=== PATIENT | female | born 1945 | race Caucasian/White ===

== ENCOUNTER 2016-10-16 09:34 | Inpatient (IN) | payer OTHER ==
[2016-10-15 13:09] VITALS: BMI 19.0
--- NOTE | 2016-10-15 13:56 | PAT Medication Instructions ---
Service Date Oct 15, 2016. Current Home Medication List Amlodipine (Norvasc), 5 MG PO QAM Clopidogrel Bisulfate (Plavix), 1 TAB PO DAILY Estrogens, Conjugated (Premarin), 0.9 MG PO QAM Fluticasone Prop/Salmeterol (Advair Diskus 250/50 60 Dose), 1 PUFF INH BID Ipratropium-Albuterol (Combivent Respimat), 1 PUFFS INH QID Levothyroxine Sodium (Synthroid), 75 MCG PO QAM Metoprolol Tartrate (Lopressor) (Lopressor), 50 MG PO BID Pantoprazole (Protonix), 40 MG PO QAM Medication Instructions For Your Scheduled Surgery Clopidogrel Bisulfate (Plavix), 1 TAB PO DAILY (per surgeon instructions) - Hold the following medications the morning of surgery: Estrogens, Conjugated (Premarin), 0.9 MG PO QAM - Take the following medications the morning of surgery with a sip of water: Metoprolol Tartrate (Lopressor) (Lopressor), 50 MG PO BID Pantoprazole (Protonix), 40 MG PO QAM Levothyroxine Sodium (Synthroid), 75 MCG PO QAM Fluticasone Prop/Salmeterol (Advair Diskus 250/50 60 Dose), 1 PUFF INH BID Ipratropium-Albuterol (Combivent Respimat), 1 PUFFS INH QID - Take the following medications as scheduled the night before surgery: Metoprolol Tartrate (Lopressor) (Lopressor), 50 MG PO BID Fluticasone Prop/Salmeterol (Advair Diskus 250/50 60 Dose), 1 PUFF INH BID Ipratropium-Albuterol (Combivent Respimat), 1 PUFFS INH QID If you have any questions please call us at [phone] or [phone] ( [place]ha) or [phone]
[2016-10-15 14:32] LABS: BASO % 0.7 %; BASO ABS # 0.07 K/uL (0-0.2); COMPLETE YES; HEMATOCRIT 34.3 % (37-47); IG% 0.3 %; LYMPH % 16.3 %; LYMPH ABS # 1.67 K/uL (1.2-3.4); MEAN CELL VOLUME 88.9 fL (80-100); MEAN CORPUSCULAR HEMOGLOBIN 28.2 pg (25-34); MEAN CORPUSCULAR HGB CONC 31.8 g/dl (32-36); MEAN PLATELET VOLUME 10.7 fL (7.4-10.4); MONO % 6.2 %; NEUT % 74.5 %; PLATELET COUNT 384 K/uL (130-400); RED BLOOD COUNT 3.86 M/uL (4.2-5.4); WHITE BLOOD COUNT 10.27 K/uL (4.8-10.8)
[2016-10-15 14:42] LABS: URINE APPEARANCE CLEAR (CLEAR); URINE BILIRUBIN NEG (NEG); URINE COLOR YELLOW; URINE NITRITE NEG (NEG); URINE SPECIFIC GRAVITY 1.012 (1.000-1.030); UROBILINOGEN NEG (NEG)
[2016-10-15 14:46] LABS: INR 0.9 (0.9-1.1); MANUAL MICROSCOPIC REQUIRED? NO; PARTIAL THROMBOPLASTIN RATIO 1.1; REVIEW REQ? NO
--- NOTE | 2016-10-15 14:51 | DIAGNOSTIC IMAGING REPORT ---
CHEST PREADMISSION(PA/LAT) CLINICAL HISTORY: Preoperative chest COMPARISON STUDY: No previous studies for comparison. FINDINGS: The cardiac and mediastinal contours are normal. There is no evidence of focal pulmonary consolidation. There is no evidence of failure. No pleural effusions are visualized.[ IMPRESSION: No active disease in the chest. Electronically signed by: Nolan Gee M.D. 10/15/2016 2:50 PM Dictated Date/Time: 10/15/2016 2:49 PM
[2016-10-15 15:07] LABS: BUN/CREATININE RATIO 10.2 (10-20); CALCIUM 8.8 mg/dl (8.5-10.1); CREATININE 1.6 mg/dl (0.60-1.20)
--- NOTE | 2016-10-15 21:40 | HISTORY & PHYSICAL EXAMINATION ---
DATE OF ADMISSION: 10/16/2016 SUBJECTIVE CHIEF COMPLAINT: This is a patient who sustained a left trimalleolar fracture on 09/07/2016. The surgeon who performed the surgery in [place] is no longer in the area. She was seen by Dr. Mahoney in clinic because the patient started having increased problems. X-ray showed a loss of fixation of the fracture. She is currently being set up for surgical treatment. PAST MEDICAL HISTORY: Hypertension, COPD, hypothyroidism and acid reflux. SOCIAL HISTORY: The patient denies alcohol and tobacco use. FAMILY HISTORY: Noncontributory. PAST SURGICAL HISTORY: Cholecystectomy stent; however, the patient does not state where the stent was placed, that was in August 2013 and a left ankle surgery. ALLERGIES: No known drug allergies. CURRENT MEDICATIONS: Synthroid, Protonix, Premarin, Norvasc, metoprolol, Advair Diskus, aspirin and Plavix. OBJECTIVE PHYSICAL EXAMINATION: GENERAL: The patient is alert and oriented x3, she is in no acute distress. She is a well-dressed, well-nourished 71-year-old female. Her affect is appropriate. CARDIOVASCULAR: Heart has a regular rhythm and rate without murmurs. LUNGS: Clear to auscultation bilateral, however, decreased breath sounds. LYMPHATIC: No evidence of any swollen lymph nodes. EXTREMITIES: Dorsalis pedis, posterior tib pulse +2/4. Cap refill is less than 2 seconds. MUSCULOSKELETAL: The patient is nonweightbearing on the left side using a wheelchair. Upon inspection of the left ankle, there is well-healed surgical incision. There is swelling noted. There is no ecchymosis noted. No range of motion or strength testing was performed. NEUROLOGIC: Sensation normal and intact distally. X-RAY EXAM: Multiple views of the left ankle demonstrate loss of fixation of a trimalleolar ankle fracture. There is a posterior dislocation of the talus, with shortening noted. ASSESSMENT AND DIAGNOSES: 1. Trimalleolar fracture, left ankle. 2. Posterior dislocation of left ankle joint. 3. Loosening of bone fixation. PLAN: Above assessment was discussed with the patient. At this time it is recommended that patient undergo a left ankle revision ORIF of the tibial fracture with possible autograft, open reduction of posterior talar dislocation, removal of hardware, and possible revision ORIF of the fibula. All potential risks, benefits, complications, alternatives and rehab have been discussed with the patient. At this time she wishes to proceed with the surgery as indicated. She will be scheduled for the surgery on 10/16/2016.
[~2016-10-16] VITALS: Ht 157.5 cm; Wt 47.0 kg
[2016-10-16] VITALS (7 sets, daily range): BP systolic 108–160; BP diastolic 56–81; PULSE 63–79; TEMP 36.3–37.5; O2SAT 97–100; Ht 157.5 cm; Wt 47.0 kg
[~2016-10-16 09:34] MED LIST: ADVIN25/60 INH; AMLO-110 PO; BUPIVACAINE 0.5 % 5 MG/1 ML PF 10ML VIAL ONE; CEFAZOLIN 1000MG/55 ML D5W IV SCH; CLOP1TAB5 PO; ESTR0.3T PO; FENTANYL CITRATE INJ 50 MCG/1 ML 2 ML VIAL ONE; IPRA1AER2 INH; LACTATED RINGER'S 1000ML 1,000 ML IV SCH; LEVO75TA PO; METO50TA16 PO; MIDAZOLAM HCL 1 MG/ML 2ML VIAL ONE; PANT40TA PO
[2016-10-16] MEDS ORDERED: HYDROmorphone INJ 1 MG/ML SYR IV PRN (10:00)
[2016-10-16] MEDS ORDERED: ATROPINE SULFATE 0.1 MG/ML 5ML SYR IV PRN (10:00)
[2016-10-16] MEDS ORDERED: MEPERIDINE HCL 25 MG/ML CARP IV PRN (10:00)
[2016-10-16] MEDS ORDERED: LABETALOL HCL IV 5 MG/ML 20ML IV PRN (10:00)
[2016-10-16] MEDS ORDERED: ONDANSETRON INJ 2 MG/ML 2 ML VIAL IV PRN ×2 (10:00→16:00)
[2016-10-16] MEDS ORDERED: FENTANYL CITRATE INJ 50 MCG/1 ML 2 ML VIAL IV PRN (10:00)
[2016-10-16] MEDS ORDERED: EpHEDrine SULFATE INJ 50 MG/ML AMP IV PRN (10:00)
[2016-10-16] MEDS ORDERED: MIDAZOLAM HCL 1 MG/ML 2ML VIAL ONE (11:39)
[2016-10-16] MEDS ORDERED: CEFAZOLIN SOD 1000MG/55 ML D5W IV ONE (11:39)
--- NOTE | 2016-10-16 11:57 | History & Physical Bridge Note ---
H&P Re-Evaluation Bridge Note: I have examined the patient, reviewed the History & Physical and in the interval since the performance of the History & Physical I have noted the following changes of clinical significance: No changes noted
[2016-10-16] MEDS ORDERED: ONDANSETRON INJ 2 MG/ML 2 ML VIAL ONE (13:18)
[2016-10-16] MEDS ORDERED: PROPOFOL IV EMULSION 10 MG/ML 20 ML VIAL IV ONE (13:18)
[2016-10-16] MEDS ORDERED: ROCURONIUM BROMIDE 10 MG/ML 5 ML VIAL ONE (13:18)
[2016-10-16] MEDS ORDERED: EpHEDrine SULFATE 50MG/5ML SYR ONE (13:18)
[2016-10-16] MEDS ORDERED: LIDOCAINE HCL 2% 2 ML VIAL (20MG/ML) ONE (13:18)
[2016-10-16] MEDS ORDERED: NEOSTIGMINE METHYLSULFATE 5 MG/5 ML SYR ONE (13:18)
[2016-10-16] MEDS ORDERED: GLYCOPYRROLATE INJ 0.2 MG/ML VIAL ONE (13:18)
[2016-10-16] MEDS ORDERED: FENTANYL CITRATE INJ 50 MCG/1 ML 2 ML VIAL ONE ×2 (13:43→14:17)
[2016-10-16] MEDS ORDERED: METOPROLOL TARTRATE 1 MG/ML VIAL ONE (14:13)
[2016-10-16] MEDS ORDERED: HydrALAZINE HCL 20 MG/ML VIAL ONE (14:43)
[2016-10-16] MEDS ORDERED: ESMOLOL HCL 10 MG/ML 10 ML VIAL ONE (14:54)
[2016-10-16] MEDS ORDERED: PHENYLEPHRINE 100MCG/ML 5ML SYR ONE (15:12)
--- NOTE | 2016-10-16 15:26 | DIAGNOSTIC IMAGING REPORT ---
LEFT ANKLE 2 VIEWS CLINICAL HISTORY: LEFT ORIF ANKLE COMPARISON STUDY: None. FINDINGS: Total fluoroscopy time was 2 minutes and 41 seconds. 2 fluoroscopic spot images of the left ankle submitted. There is a cortical plate and screws at the distal tibia. The hardware appears intact. The alignment appears anatomic. IMPRESSION: Fluoroscopy provided for internal fixation of the left ankle. Electronically signed by: Jason Weaver M.D. 10/16/2016 3:24 PM Dictated Date/Time: 10/16/2016 3:21 PM
--- NOTE | 2016-10-16 15:27 | [facility] Post Operative Brief Note ---
Immediate Operative Summary Operative Date Oct 16, 2016. Pre-Operative Diagnosis 1. Trimalleolar fracture, left ankle. 2. Posterior dislocation of left ankle joint. 3. Loosening of bone fixation. 4. Retained Hardware Post-Operative Diagnosis 1. Trimalleolar fracture, left ankle. 2. Posterior dislocation of left ankle joint. 3. Loosening of bone fixation. 4. Retained Hardware Procedure(s) Performed Left Ankle Open Reduction Internal Fixation Distal Tibial Fracture; Open Reduction Talus Dislocation; Removal Hardware Tibia; Removal Hardware Fibula Surgeon Dr. Naveed Mahoney Fitting Room Checker Surgeon(s) None Estimated Blood Loss 40cc Findings See Dict Specimens Specimen A. Explanted left ankle hardware Drains None Anesthesia GETT w/ popliteal Complication(s) None Disposition Recovery Room / PACU
[2016-10-16] MEDS ORDERED: MAGNESIUM HYDROXIDE SUSP 30 ML UDC PO PRN (16:00)
--- NOTE | 2016-10-16 16:28 | OPERATIVE REPORT ---
DATE OF OPERATION: 10/16/2016 PREOPERATIVE DIAGNOSES: 1. Left ankle trimalleolar fracture-dislocation with prior attempted fixation. 2. Posterior dislocation of the ankle joint. 3. Loss of fixation. 4. Retained hardware in the tibia and the fibula. POSTOPERATIVE DIAGNOSES: Same. PROCEDURES: 1. Left ankle open reduction and internal fixation distal tibial fracture via posterior approach. 2. Open reduction talus dislocation. 3. Removal of hardware of the tibia. 4. Removal of hardware of the fibula including plate and screws. SURGEON: Dr. Mahoney. RADIO COMMUNICATIONS SUPERINTENDENT: Rudolph Herr PA-C who was present for patient positioning, sterile prep and drape, management of retractors and instruments. He was present through the critical portions of the case including wound closure, application of sterile dressing and transport of the patient to recovery. ANESTHESIA: General endotracheal tube with popliteal block. SPECIMENS: None. DRAINS: None. COMPLICATIONS: None. BLOOD LOSS: 40 mL. PERTINENT HISTORY: This is a 71-year-old female who had a previous trimalleolar fracture-dislocation of her ankle and was taken care of by Dr. Leonardo at [facility]. The patient had a followup visit on October 09, Dr. Chery was the attending who reviewed her films and noted she had loss of fixation and dislocation of her talus with displacement of her tibia fracture. She was then referred to my clinic for definitive care and management. All potential risks, benefits, complications, alternatives, rehab, potential for incomplete relief of symptoms, need for further surgery, DVT, PE, , persistent pain, swelling, scarring, weakness, neurovascular injury, wound complications, wound dehiscence, hardware breakage, bone fracture, nonunion or malunion were discussed with patient and decided to proceed with the procedure as indicated. DESCRIPTION OF PROCEDURE: After popliteal block was administered in the preop holding area, the patient was taken to the operative suite and placed supine on the operating room table. I reviewed the consent and identification of proper operative site, the patient was anesthetized, endotracheal tube was placed and a tourniquet was applied high on the left thigh over cast padding. The patient was then rolled prone over bolsters. All bony prominences were properly padded and protected. Next, the left lower extremity was then sterilely prepped and draped in usual fashion, elevated and exsanguinated with an Esmarch bandage. Tourniquet inflated to 300 mmHg. Next, a 15-blade scalpel was used to make small percutaneous incisions over the screw insertion sites over the lateral aspect of her fibula. The respective screws were removed. The holes were curetted and irrigated with sterile normal saline. Next, a slightly larger 1 cm incision was made distal to the plate which had been wrapped around the distal aspect of the fibula and then this plate was then removed percutaneously. These incisions were all irrigated with sterile normal saline, then closed using 4-0 nylon. Next, incision was made in the anterior distal aspect of the tibia. Careful dissection was performed with a hemostat down to the level of the anterior tibia and the screw which had lost fixation was then removed with a small screwdriver, irrigated with sterile normal saline, curetted with a small curette and then closed using 4-0 nylon. Next, a 15-blade scalpel was then used to make an incision on the lateral aspect of the Achilles tendon. The skin was then incised with 15-blade scalpel. Fascia was incised and the appropriate retractors were placed in the incision. Careful dissection was performed with tenotomy scissors noting the sural nerve and the peroneal vessels which were then retracted and protected. Next, the flexor hallucis longus fibers were identified, freed, retracted, and protected. Next, the periosteum overlying the posterior tibia was visualized and incised and retracted and protected. The displaced fracture was then noted. Careful dissection was performed with a rongeur and a [place] elevator and carefully developed a plane of the displaced fracture fragment. Next, a transfixion pin was placed percutaneously through the calcaneal tuberosity and traction was applied. The fragment was then freed, irrigated with sterile normal saline and a small pituitary rongeur was then used to resect any debris within the interspace of the fracture fragment and also into the tibiotalar joint. The talus was visualized. Next, the traction was applied. The talus was then reduced over the distal tibia, posterior fragment was then compressed with a picadur through a small stab incision through the anterior tibia. Direct compression was applied to the fragment and then pinned in place provisionally with a 0.045 inch K wires. Next, the Synthes posterior distal locking tibial plate was then applied to the posterior distal tibia, provisionally fixed with a non-locking screw. Multiple non-locking screw was then used to compress the plate and the fracture fragment thus reducing it followed by placement of locking screws to stabilize the fracture and compression screws were then exchanged for locking screws thus forming a stable construct. Near anatomic reduction was achieved and the wound was then copiously irrigated with sterile normal saline. AP and lateral final x-rays were obtained followed by closure of the deep soft tissue with 2-0 Vicryl. The fascia was closed using 2-0 Vicryl. The dermis was then closed using buried interrupted 3-0 Vicryl. Skin was closed with 4-0 nylon. A sterile compressive dressing and bulky Phillip Quiroga plaster splint was applied in neutral dorsiflexion. The tourniquet was released. The patient was awakened and taken to recovery in stable condition. I attest to the content of the Intraoperative Record and any orders documented therein. Any exceptio ns are noted below.
--- NOTE | 2016-10-16 16:47 | DIAGNOSTIC IMAGING REPORT ---
LEFT ANKLE 2 VIEWS CLINICAL HISTORY: Postop examination. FRACTURE. COMPARISON: Intraoperative study performed the same day DISCUSSION: There is a posterior metallic plate and multiple screws at the level of the distal tibia. The fine bony details obscured by an overlying plaster cast. Alignment appears near anatomic. IMPRESSION: Postsurgical changes involving the distal tibia. Electronically signed by: Nolan Gee M.D. 10/16/2016 4:45 PM Dictated Date/Time: 10/16/2016 4:44 PM
--- NOTE | 2016-10-16 17:37 | Anesthesiology Progress Note ---
Anesthesia Post Op Note Date & Time Oct 16, 2016 at 17:36 Vital Signs Pain Intensity: 4.0 Vital Signs Past 12 Hours Date Time Temp Pulse Resp B/P Pulse Ox O2 Delivery O2 Flow Rate FiO2 10/16/16 17:15 37.2 75 18 112/58 97 Room Air 10/16/16 16:56 97 Room Air 10/16/16 16:45 37.5 78 18 108/62 97 Room Air 10/16/16 16:34 69 21 97 10/16/16 16:34 69 21 10/16/16 16:33 109/44 10/16/16 16:29 70 22 97 10/16/16 16:29 70 22 10/16/16 16:28 105/47 10/16/16 16:25 71 20 10/16/16 16:25 70 20 97 10/16/16 16:23 101/41 10/16/16 16:20 71 23 97 10/16/16 16:20 71 23 10/16/16 16:20 37.1 74 22 108/49 98 Room Air 10/16/16 16:18 108/49 10/16/16 16:15 71 19 10/16/16 16:15 71 19 97 10/16/16 16:13 112/46 10/16/16 16:10 75 19 10/16/16 16:10 75 19 99 10/16/16 16:08 112/48 10/16/16 16:05 82 19 99 10/16/16 16:03 104/46 10/16/16 16:00 73 20 99 10/16/16 15:57 71 19 100 10/16/16 15:57 71 19 10/16/16 15:53 106/46 10/16/16 15:52 73 14 10/16/16 15:52 73 14 100 10/16/16 15:48 111/45 10/16/16 15:47 75 19 100 10/16/16 15:47 75 19 10/16/16 15:43 120/49 10/16/16 15:42 78 14 10/16/16 15:42 78 14 100 10/16/16 15:42 36.8 84 12 143/60 100 Mask 10 10/16/16 10:01 36.5 63 18 160/81 100 Room Air Notes Mental Status: alert / awake / arousable, participated in evaluation Pt Amnestic to Procedure: Yes Nausea / Vomiting: adequately controlled Pain: adequately controlled Airway Patency, RR, SpO2: stable & adequate BP & HR: stable & adequate Hydration State: stable & adequate Anesthetic Complications: no major complications apparent
--- NOTE | 2016-10-16 17:45 | Medical Consult ---
Consultation Date of Consultation: Oct 16, 2016. Attending Physician: Naveed Mahoney D.O. Reason for Consultation: Post Op Medical Management History of Present Illness 71 year old female who is s/p left ankle ORIF today by Dr. Mahoney. Patient had a fall in August and suffered a left trimalleolar ankle fracture. Patient underwent surgical repair. She continued to have pain however her original surgeon had left the area. She then was evaluated by Dr. Mahoney and presented for the planned procedure today. Post operatively the patient is doing well. She reports her pain is well controlled. She rates it #2/10. She continues to have numbness to the LLE and is unable to move her toes. She denies chest pain and shortness of breath. No abdominal pain, nausea, or vomiting. She denies lightheadedness and dizziness. Past Medical/Surgical History Medical Problems: (1) Carotid artery stent Status: Chronic (2) COPD (chronic obstructive pulmonary disease) Status: Chronic (3) CVA (cerebral vascular accident) Status: Chronic (4) HTN (hypertension) Status: Chronic (5) Hypothyroidism Status: Chronic (6) Trimalleolar fracture of left ankle Status: Chronic Surgical Problems: (1) History of hysterectomy Status: Chronic (2) Hx of appendectomy Status: Chronic (3) Hx of cholecystectomy Status: Chronic Family History non contributory due to patient's age Social History Smoking Status: Former Smoker Alcohol Use: none Allergies Coded Allergies: No Known Allergies (Unverified , 10/16/16) Home Medications Reported Plavix (Clopidogrel Bisulfate) 75 Mg Tab 1 Tab PO DAILY Advair Diskus 250/50 60 Dose (Fluticasone Prop/Salmeterol) 1 Ea Aerp 1 Puff INH BID Combivent Respimat (Ipratropium-Albuterol) 1 Aer Aer 1 Puffs INH QID 200/100MCG ON PT MED LIST Lopressor (Metoprolol Tartrate) 50 Mg Tab 50 Mg PO BID Premarin (Estrogens Conjugated) 0.3 Mg Tab 0.9 Mg PO QAM Synthroid (Levothyroxine Sodium) 75 Mcg Tab 75 Mcg PO QAM Protonix (Pantoprazole Sodium) 40 Mg Tab 40 Mg PO QAM Norvasc (Amlodipine Besylate) 5 Mg Tab 5 Mg PO QAM Current Inpatient Medications Current Inpatient Medications Medications (Trade) Dose Ordered Sig/Keisha Route Start Time Stop Time Status Last Admin Dose Admin Lactated Ringer's 1,000 ml @ 15 mls/hr Q24H IV 10/16/16 06:00 10/16/16 18:00 Cefazolin Sodium (Ancef 1000mg/55 ml D5W) 55 ml @ 100 mls/hr PREOP IV 10/16/16 06:00 10/16/16 18:00 10/16/16 12:28 100 MLS/HR Amlodipine Besylate (Norvasc Tab) 5 mg QAM PO 10/17/16 09:00 11/16/16 08:59 UNV Clopidogrel Bisulfate (plAVix TAB) 75 mg DAILY PO 10/17/16 09:00 11/16/16 08:59 UNV Estrogens Conjugated (Premarin Tab) 0.9 mg QAM PO 10/17/16 09:00 11/16/16 08:59 UNV Salmeterol Xinafoate/ Fluticasone (Advair Diskus 250/50 Inh) 1 puff BID INH 10/16/16 21:00 11/15/16 20:59 UNV Albuterol/ Ipratropium (Combivent Respimat Inh) 1 puffs QID INH 10/16/16 17:00 11/15/16 16:59 UNV Levothyroxine Sodium (Synthroid Tab) 75 mcg QAM PO 10/17/16 09:00 11/16/16 08:59 UNV Metoprolol Tartrate (Lopressor Tab) 50 mg BID PO 10/16/16 21:00 11/15/16 20:59 UNV Pantoprazole Sodium 40 mg 40 mg QAM PO 10/17/16 09:00 11/16/16 08:59 UNV Potassium Chloride/Sodium Chloride (KCl Inj/Nss 1000ml) 1,005 ml @ 100 mls/hr Q10H3M IV 10/16/16 15:55 11/15/16 15:54 UNV Oxycodone HCl (Roxicodone Immediate Rel Tab) 1-2 TABS FOR PAIN 1 TABLET ... Q4H PRN PO 10/16/16 16:00 10/30/16 15:59 UNV Acetaminophen (Tylenol Tab) 650 mg Q6H PRN PO 10/16/16 16:00 11/15/16 15:59 UNV Magnesium Hydroxide (Milk Of Magnesia Susp) 30 ml Q6H PRN PO 10/16/16 16:00 11/15/16 15:59 UNV Docusate Sodium (coLACE CAP) 100 mg BID PO 10/16/16 21:00 11/15/16 20:59 UNV Multivitamins (Multivitamin Tab) 1 tab QAM PO 10/17/16 09:00 11/16/16 08:59 UNV Ondansetron HCl 4 mg 4 mg Q6H PRN IV 10/16/16 16:00 11/15/16 15:59 UNV Cefazolin Sodium/ Dextrose (Ancef Iv/D5 50ml) 55 ml @ 100 mls/hr Q8H IV 10/16/16 16:00 10/17/16 00:32 UNV Review of Systems 10 point review of systems was completed with the pertinent positives and negatives noted per the HPI Physical Exam Date Time Temp Pulse Resp B/P Pulse Ox O2 Delivery O2 Flow Rate FiO2 10/16/16 16:56 97 Room Air 10/16/16 16:34 69 21 97 10/16/16 16:34 69 21 10/16/16 16:33 109/44 10/16/16 16:29 70 22 97 10/16/16 16:29 70 22 10/16/16 16:28 105/47 10/16/16 16:25 71 20 10/16/16 16:25 70 20 97 10/16/16 16:23 101/41 10/16/16 16:20 71 23 97 10/16/16 16:20 71 23 10/16/16 16:20 37.1 74 22 108/49 98 Room Air 10/16/16 16:18 108/49 10/16/16 16:15 71 19 10/16/16 16:15 71 19 97 10/16/16 16:13 112/46 10/16/16 16:10 75 19 10/16/16 16:10 75 19 99 10/16/16 16:08 112/48 10/16/16 16:05 82 19 99 10/16/16 16:03 104/46 10/16/16 16:00 73 20 99 10/16/16 15:57 71 19 100 10/16/16 15:57 71 19 10/16/16 15:53 106/46 10/16/16 15:52 73 14 10/16/16 15:52 73 14 100 10/16/16 15:48 111/45 10/16/16 15:47 75 19 100 10/16/16 15:47 75 19 10/16/16 15:43 120/49 10/16/16 15:42 78 14 10/16/16 15:42 78 14 100 10/16/16 15:42 36.8 84 12 143/60 100 Mask 10 10/16/16 10:01 36.5 63 18 160/81 100 Room Air General Appearance: no apparent distress Head: normocephalic Eyes: normal inspection ENT: hearing grossly normal Neck: supple, no JVD Respiratory/Chest: lungs clear, normal breath sounds, no respiratory distress Cardiovascular: regular rate, rhythm, no edema, normal peripheral pulses Abdomen/GI: normal bowel sounds, non tender, soft Extremities/Musculoskelatal: + pertinent finding (s/p left ankle surgery, surgical dressing in place and intact; sensation not intact to left foot, pulses +2, toes warm to touch ) Neurologic/Psych: no motor/sensory deficits, alert, normal mood/affect, oriented x 3 Skin: normal color, warm/dry Assessment & Plan S/P LEFT ANKLE ORIF - POD#0 - activity and wound care orders as per ortho - pain control with bowel regimen - PT/OT - monitor H/H for acute blood loss anemia and transfuse blood products PRN HTN - BP controlled, continue metoprolol and amlodipine HX CVA - Plavix continued by ortho HYPOTHYROIDISM - continue levothyroxine COPD - no signs of acute exacerbation - continue home inhalers DVT PROPHYLAXIS - deferred to ortho Thank you for this consultation. We will follow the patient with you during their hospital stay. You can reach a member of the [facility] Hospitalist Team 19/04 via pager @ . Attending Note: Patient is a 71 yr old female with PMH of COPD, HTN, CVA and hypothyroidism who had an elective left ankle ORIF revision by is consulted for medical management. Patient is doing well post OP. Denies any pain at the surgical site. Also denies any chest pain, SOB, dizziness, abd pain, fever, chills. Physical Exam: Vitals signs as noted above General Appearance:Thin, fragile, no apparent distress Head: normocephalic, Atraumatic Eyes: EOMI, PERRLA, Anicteric Neck: supple, no JVD, Trachea midline Respiratory/Chest: Normal Vesicular breath sounds, CTA, No accessory muscle use Cardiovascular: S1, S2, NSR, No murmur Abdomen/GI:Soft, Non tender, Bowel sounds present, No guarding/rigidity/ organomegaly Extremities/Musculoskeletal:Left LE in surgical bandage Neurologic/Psych:AAOX3, grossly no focal neurological deficits Skin: normal color, warm Assessment and Plan: Left Ankle fracture S/P ORIF POD #0 Pain control and anticoagulation per primary team Bowel regimen PT/OT Orthopedics on board Hypertension: Stable Continue home meds Agree with assessment and plan of Chantal Garcia [employer] as above.
[2016-10-16] MEDS: OXYCODONE HCL IR 5 MG TAB (IMMEDIATE RELEASE) PO PRN ×2 (18:52→21:33)
[2016-10-16] MEDS: IPRATROPIUM BROMIDE/ALBUTEROL respimat INH INH SCH ×2 (19:01→20:48)
[2016-10-16] MEDS: POTASSIUM CHLORIDE INJ 10 MEQ in SODIUM CHLORIDE 0.9% 1000ML 1,000 ML IV SCH (19:01)
[2016-10-16] MEDS: CEFAZOLIN IV 1,000 MG in DEXTROSE 5% 50ML 50 ML IV SCH (20:46)
[2016-10-16] MEDS: FLUTICASONE/SALMETEROL 250/50 (ADVAIR) 14 PUFF/1 INHALER INH SCH (20:47)
[2016-10-16] MEDS: METOPROLOL TARTRATE 50 MG TAB PO SCH (20:47)
[2016-10-16] MEDS: DOCUSATE SODIUM 100 MG CAP PO SCH (20:48)
[2016-10-16] MEDS: ACETAMINOPHEN 325 MG TAB PO PRN (22:03)
[2016-10-16] MEDS: HEPARIN SOD 5000 UNIT/0.5 ML CARP SQ SCH (22:37)
[2016-10-17] VITALS (7 sets, daily range): BP systolic 121–185; BP diastolic 58–78; PULSE 68–90; TEMP 37–38.2; O2SAT 93–99
[2016-10-17] MEDS: POTASSIUM CHLORIDE INJ 10 MEQ in SODIUM CHLORIDE 0.9% 1000ML 1,000 ML IV SCH ×3 (04:09→23:19)
[2016-10-17] MEDS: CEFAZOLIN IV 1,000 MG in DEXTROSE 5% 50ML 50 ML IV SCH (04:09)
[2016-10-17] MEDS: LEVOTHYROXINE 75 MCG TAB PO SCH (05:39)
[2016-10-17] MEDS: OXYCODONE HCL IR 5 MG TAB (IMMEDIATE RELEASE) PO PRN ×3 (06:57→19:02)
[2016-10-17 07:11] LABS: HEMATOCRIT 29.4 % (37-47); MEAN CELL VOLUME 89.9 fL (80-100); MEAN CORPUSCULAR HEMOGLOBIN 28.1 pg (25-34); MEAN CORPUSCULAR HGB CONC 31.3 g/dl (32-36); MEAN PLATELET VOLUME 10.9 fL (7.4-10.4); PLATELET COUNT 304 K/uL (130-400); RED BLOOD COUNT 3.27 M/uL (4.2-5.4); WHITE BLOOD COUNT 10.17 K/uL (4.8-10.8)
[2016-10-17 07:39] LABS: CALCIUM 7.8 mg/dl (8.5-10.1); CREATININE 1.6 mg/dl (0.60-1.20); POTASSIUM 4.5 mmol/L (3.5-5.1)
[2016-10-17] MEDS ORDERED: MoRPHine SULFATE 2 MG/ML CARP ONE (07:43)
[2016-10-17] MEDS ORDERED: NURSING VERBAL MED ORDER ONE (07:45)
[2016-10-17] MEDS: IPRATROPIUM BROMIDE/ALBUTEROL respimat INH INH SCH ×4 (09:19→20:45)
[2016-10-17] MEDS: FLUTICASONE/SALMETEROL 250/50 (ADVAIR) 14 PUFF/1 INHALER INH SCH ×2 (09:19→20:45)
[2016-10-17] MEDS: PANTOprazole SOD 40 MG TAB PO SCH (09:20)
[2016-10-17] MEDS: AMLODIPINE BESYLATE 5 MG TAB PO SCH (09:20)
[2016-10-17] MEDS: ESTROGENS, CONJUGATED 0.3 MG TAB PO SCH (09:20)
[2016-10-17] MEDS: METOPROLOL TARTRATE 50 MG TAB PO SCH ×2 (09:21→20:44)
[2016-10-17] MEDS: MULTIVITAMIN TAB PO SCH (09:21)
[2016-10-17] MEDS: CLOPIDOGREL BISULFATE 75 MG TAB PO SCH (09:21)
[2016-10-17] MEDS: DOCUSATE SODIUM 100 MG CAP PO SCH ×2 (09:21→20:45)
[2016-10-17] MEDS: HEPARIN SOD 5000 UNIT/0.5 ML CARP SQ SCH ×2 (09:28→20:46)
--- NOTE | 2016-10-17 09:45 | Orthopedic Progress Note ---
Orthopedic Progress Note Date of Service Oct 17, 2016. Subjective Post OP Day: 1 Reports: feeling well Objective N/V intact, dressing C/D/I, toes mobile Date Time Temp Pulse Resp B/P Pulse Ox O2 Delivery O2 Flow Rate FiO2 10/17/16 07:30 37.0 79 18 146/58 94 Room Air 10/17/16 07:30 Room Air 10/17/16 03:59 37.0 77 16 129/68 96 Room Air 10/16/16 23:53 37.1 79 16 116/56 99 Room Air 10/16/16 23:34 Room Air 10/16/16 19:58 36.6 79 16 128/59 99 Room Air 10/16/16 18:50 36.6 75 16 152/56 97 Room Air 10/16/16 17:46 36.3 77 16 112/58 97 10/16/16 17:15 37.2 75 18 112/58 97 Room Air 10/16/16 16:56 97 Room Air 10/16/16 16:45 97 Room Air 10/16/16 16:45 37.5 78 18 108/62 97 Room Air 10/16/16 16:34 69 21 97 10/16/16 16:34 69 21 10/16/16 16:33 109/44 10/16/16 16:29 70 22 97 10/16/16 16:29 70 22 10/16/16 16:28 105/47 10/16/16 16:25 71 20 10/16/16 16:25 70 20 97 10/16/16 16:23 101/41 10/16/16 16:20 71 23 97 10/16/16 16:20 71 23 10/16/16 16:20 37.1 74 22 108/49 98 Room Air 10/16/16 16:18 108/49 10/16/16 16:15 71 19 10/16/16 16:15 71 19 97 10/16/16 16:13 112/46 10/16/16 16:10 75 19 10/16/16 16:10 75 19 99 10/16/16 16:08 112/48 10/16/16 16:05 82 19 99 10/16/16 16:03 104/46 10/16/16 16:00 73 20 99 10/16/16 15:57 71 19 100 10/16/16 15:57 71 19 10/16/16 15:53 106/46 10/16/16 15:52 73 14 10/16/16 15:52 73 14 100 10/16/16 15:48 111/45 10/16/16 15:47 75 19 100 10/16/16 15:47 75 19 10/16/16 15:43 120/49 10/16/16 15:42 78 14 10/16/16 15:42 78 14 100 10/16/16 15:42 36.8 84 12 143/60 100 Mask 10 10/16/16 10:01 36.5 63 18 160/81 100 Room Air Laboratory Results 24 Hours: Test 10/17/16 06:15 Hematocrit 29.4 % Hemoglobin 9.2 g/dL Assessment & Plan Assessment: 71 yo female stable POD #1 s/p revision ORIF left ankle Plan: 1. Med management 2. DVT prophylaxis- Plavix, TEDs, SCDs 3. PT/OT 4. D/C planning- pt likely to need rehab vs SNF
[2016-10-17] MEDS: MoRPHine SULFATE 2 MG/ML CARP IV PRN ×5 (13:40→23:16)
--- NOTE | 2016-10-17 14:23 | Progress Note ---
Medicine Progress Note Date & Time of Visit: Oct 17, 2016 at 13:59. Subjective Pt was seen and examined Sitting in chair comfortable with no distress Pt said that she is still having some pain in her ankle she denies any chest pain, palpitation, dizziness and SOB Objective Last 8 Hrs Date Time Temp Pulse Resp B/P Pulse Ox O2 Delivery O2 Flow Rate FiO2 10/17/16 12:20 37.2 68 16 121/58 99 Room Air 10/17/16 07:30 37.0 79 18 146/58 94 Room Air 10/17/16 07:30 Room Air Physical Exam: General- sitting comfortable, no distress Head- atraumatic Eyes- PERRL, EOMI ENT- oropharynx clear Neck- supple, no JVD Lungs- clear to auscultation and percussion Heart- regular rhythm; no murmur Abdomen- normal bowel sounds, soft Extremities- no calf tenderness, left ankle tenderness Neuro- alert, oriented x 3; PERRL, EOMI Skin- warm & dry Laboratory Results: Last 24 Hours Test 10/17/16 06:15 White Blood Count 10.17 K/uL Red Blood Count 3.27 M/uL Hemoglobin 9.2 g/dL Hematocrit 29.4 % Mean Corpuscular Volume 89.9 fL Mean Corpuscular Hemoglobin 28.1 pg Mean Corpuscular Hemoglobin Concent 31.3 g/dl RDW Standard Deviation 46.5 fL RDW Coefficient of Variation 14.2 % Platelet Count 304 K/uL Mean Platelet Volume 10.9 fL Sodium Level 141 mmol/L Potassium Level 4.5 mmol/L Chloride Level 108 mmol/L Carbon Dioxide Level 22 mmol/L Anion Gap 11.0 mmol/L Blood Urea Nitrogen 13 mg/dl Creatinine 1.60 mg/dl Est Creatinine Clear Calc Drug Dose 23.9 ml/min Estimated GFR () 37.2 Estimated GFR (Non- 32.1 BUN/Creatinine Ratio 8.0 Random Glucose 93 mg/dl Calcium Level 7.8 mg/dl Assessment & Plan S/P LEFT ANKLE ORIF - POD#1 s/p revision ORIF left ankle - Continue pain management -Hgb 9.2 today - PT/OT -Continue monitor h/h - Plan to go to rehab ELEVATED CREATINE Creatine 1.6, stay stable since admission Don't know her baseline creatine ON IVF Will avoid nephrotoxic agents continue monitor BMP HTN - continue metoprolol and amlodipine - BP stable HX CVA - Plavix continued by ortho HYPOTHYROIDISM - continue levothyroxine COPD - continue home inhalers - Stable DVT PROPHYLAXIS - on heparin subq \ Current Inpatient Medications: Current Inpatient Medications Medications (Trade) Dose Ordered Sig/Keisha Route Start Time Stop Time Status Last Admin Dose Admin Amlodipine Besylate (Norvasc Tab) 5 mg QAM PO 10/17/16 09:00 11/16/16 08:59 10/17/16 09:20 5 MG Clopidogrel Bisulfate (plAVix TAB) 75 mg DAILY PO 10/17/16 09:00 11/16/16 08:59 10/17/16 09:21 75 MG Estrogens Conjugated (Premarin Tab) 0.9 mg QAM PO 10/17/16 09:00 11/16/16 08:59 10/17/16 09:20 0.9 MG Salmeterol Xinafoate/ Fluticasone (Advair Diskus 250/50 Inh) 1 puff BID INH 10/16/16 21:00 11/15/16 20:59 10/17/16 09:19 1 PUFF Albuterol/ Ipratropium (Combivent Respimat Inh) 1 puffs QID INH 10/16/16 17:00 11/15/16 16:59 10/17/16 12:57 1 PUFFS Levothyroxine Sodium (Synthroid Tab) 75 mcg DAILYBB PO 10/17/16 06:00 11/16/16 05:59 10/17/16 05:39 75 MCG Metoprolol Tartrate (Lopressor Tab) 50 mg BID PO 10/16/16 21:00 11/15/16 20:59 10/17/16 09:21 50 MG Pantoprazole Sodium 40 mg 40 mg QAM PO 10/17/16 09:00 11/16/16 08:59 10/17/16 09:20 40 MG Potassium Chloride/Sodium Chloride (KCl Inj/Nss 1000ml) 1,005 ml @ 100 mls/hr Q10H3M IV 10/16/16 18:00 11/15/16 17:59 10/17/16 04:09 100 MLS/HR Oxycodone HCl (Roxicodone Immediate Rel Tab) 1-2 TABS FOR PAIN 1 TABLET ... Q4H PRN PO 10/16/16 16:00 10/30/16 15:59 10/17/16 06:57 10 MG Acetaminophen (Tylenol Tab) 650 mg Q6H PRN PO 10/16/16 16:00 11/15/16 15:59 10/16/16 22:03 650 MG Magnesium Hydroxide (Milk Of Magnesia Susp) 30 ml Q6H PRN PO 10/16/16 16:00 11/15/16 15:59 Docusate Sodium (coLACE CAP) 100 mg BID PO 10/16/16 21:00 11/15/16 20:59 10/17/16 09:21 100 MG Multivitamins (Multivitamin Tab) 1 tab QAM PO 10/17/16 09:00 11/16/16 08:59 10/17/16 09:21 1 TAB Ondansetron HCl (Zofran Inj) 4 mg Q6H PRN IV 10/16/16 16:00 11/15/16 15:59 Heparin Sodium (Porcine) (Heparin Sq 5000 Unit/0.5ml) 5,000 unit Q12 SQ 10/16/16 21:00 11/15/16 20:59 10/17/16 09:28 5,000 UNIT Morphine Sulfate (MoRPHine SULFATE INJ) 2 mg Q2H PRN IV 10/17/16 08:00 10/31/16 07:59 10/17/16 13:40 2 MG
[2016-10-17] MEDS: ACETAMINOPHEN 325 MG TAB PO PRN (16:56)
[2016-10-18] VITALS (7 sets, daily range): BP systolic 114–171; BP diastolic 61–74; PULSE 76–84; TEMP 36.9–38; O2SAT 90–94
[2016-10-18] MEDS: OXYCODONE HCL IR 5 MG TAB (IMMEDIATE RELEASE) PO PRN ×5 (03:02→23:22)
[2016-10-18] MEDS: LEVOTHYROXINE 75 MCG TAB PO SCH (05:31)
[2016-10-18 06:03] LABS: HEMATOCRIT 27.5 % (37-47); MEAN CELL VOLUME 89.9 fL (80-100); MEAN CORPUSCULAR HEMOGLOBIN 28.4 pg (25-34); MEAN CORPUSCULAR HGB CONC 31.6 g/dl (32-36); MEAN PLATELET VOLUME 10.8 fL (7.4-10.4); PLATELET COUNT 252 K/uL (130-400); RED BLOOD COUNT 3.06 M/uL (4.2-5.4); WHITE BLOOD COUNT 16.07 K/uL (4.8-10.8)
[2016-10-18 06:39] LABS: BUN/CREATININE RATIO 7.6 (10-20); CALCIUM 7.9 mg/dl (8.5-10.1); CREATININE 1.4 mg/dl (0.60-1.20); POTASSIUM 4.2 mmol/L (3.5-5.1)
[2016-10-18] MEDS: FLUTICASONE/SALMETEROL 250/50 (ADVAIR) 14 PUFF/1 INHALER INH SCH ×2 (07:24→21:36)
[2016-10-18] MEDS: MULTIVITAMIN TAB PO SCH (07:25)
[2016-10-18] MEDS: ESTROGENS, CONJUGATED 0.3 MG TAB PO SCH (07:25)
[2016-10-18] MEDS: PANTOprazole SOD 40 MG TAB PO SCH (07:25)
[2016-10-18] MEDS: AMLODIPINE BESYLATE 5 MG TAB PO SCH (07:25)
[2016-10-18] MEDS: IPRATROPIUM BROMIDE/ALBUTEROL respimat INH INH SCH ×4 (07:25→21:36)
[2016-10-18] MEDS: CLOPIDOGREL BISULFATE 75 MG TAB PO SCH (07:25)
[2016-10-18] MEDS: METOPROLOL TARTRATE 50 MG TAB PO SCH ×2 (07:26→21:37)
[2016-10-18] MEDS: HEPARIN SOD 5000 UNIT/0.5 ML CARP SQ SCH ×2 (07:26→21:00)
[2016-10-18] MEDS: DOCUSATE SODIUM 100 MG CAP PO SCH ×2 (07:26→21:36)
--- NOTE | 2016-10-18 09:22 | Orthopedic Progress Note ---
Orthopedic Progress Note Date of Service Oct 18, 2016. Subjective Post OP Day: 2 Reports: feeling well Objective N/V intact, dressing C/D/I, toes mobile Date Time Temp Pulse Resp B/P Pulse Ox O2 Delivery O2 Flow Rate FiO2 10/18/16 08:53 80 90 10/18/16 08:28 Room Air 10/18/16 07:30 37.5 80 18 171/73 90 Room Air 10/18/16 06:42 36.9 84 16 153/67 91 Room Air 10/17/16 23:16 Room Air 10/17/16 23:07 37.3 82 16 172/78 93 Room Air 10/17/16 18:53 37.1 90 16 144/61 93 Room Air 10/17/16 16:30 96 Room Air 10.0 10/17/16 15:09 38.2 85 16 185/69 96 Room Air 10/17/16 12:20 37.2 68 16 121/58 99 Room Air Laboratory Results 24 Hours: Test 10/18/16 05:30 Hematocrit 27.5 % Hemoglobin 8.7 g/dL Assessment & Plan Assessment: 71 yo female stable POD #2 s/p revision ORIF left ankle, acute blood loss anemia , asymptomatic, may in part be dilutional Plan: 1. Med management 2. DVT prophylaxis- Plavix, TEDs, SCDs 3. PT/OT 4. D/C planning- pt likely to need rehab vs SNF
[2016-10-18] MEDS: BOOST VANILLA PO SCH ×4 (10:34→17:00)
--- NOTE | 2016-10-18 18:24 | Progress Note ---
Medicine Progress Note Date & Time of Visit: Oct 18, 2016 at 18:18. Subjective Pt was seen and examined Sitting in chair comfortable with no distress Pt said that she feels fine she said that her pain is only 2/10 denies any chest pain, palpitation, dizziness and SOB Objective Last 8 Hrs Date Time Temp Pulse Resp B/P Pulse Ox O2 Delivery O2 Flow Rate FiO2 10/18/16 15:24 37.3 76 16 114/64 93 Room Air 10/18/16 15:20 Room Air 10/18/16 12:07 37.2 80 18 153/74 94 Room Air Physical Exam: General- sitting comfortable, no distress Head- atraumatic Eyes- PERRL, EOMI ENT- oropharynx clear Neck- supple, no JVD Lungs- clear to auscultation and percussion Heart- regular rhythm; no murmur Abdomen- normal bowel sounds, soft Extremities- no calf tenderness, left ankle tenderness Neuro- alert, oriented x 3; PERRL, EOMI Skin- warm & dry Laboratory Results: Last 24 Hours Test 10/18/16 05:30 White Blood Count 16.07 K/uL Red Blood Count 3.06 M/uL Hemoglobin 8.7 g/dL Hematocrit 27.5 % Mean Corpuscular Volume 89.9 fL Mean Corpuscular Hemoglobin 28.4 pg Mean Corpuscular Hemoglobin Concent 31.6 g/dl RDW Standard Deviation 47.6 fL RDW Coefficient of Variation 14.4 % Platelet Count 252 K/uL Mean Platelet Volume 10.8 fL Sodium Level 142 mmol/L Potassium Level 4.2 mmol/L Chloride Level 109 mmol/L Carbon Dioxide Level 21 mmol/L Anion Gap 12.0 mmol/L Blood Urea Nitrogen 11 mg/dl Creatinine 1.40 mg/dl Est Creatinine Clear Calc Drug Dose 27.3 ml/min Estimated GFR () 43.7 Estimated GFR (Non- 37.7 BUN/Creatinine Ratio 7.6 Random Glucose 90 mg/dl Calcium Level 7.9 mg/dl Assessment & Plan S/P LEFT ANKLE ORIF - POD#2 s/p revision ORIF left ankle - Continue pain management -Hgb 8.7 today - PT/OT -Continue monitor h/h - If hgb drops below 8, will transfuse - Plan to go to rehab ELEVATED CREATINE Creatine 1.6 on admission Don't know her baseline creatine Creatine today 1.4 Will avoid nephrotoxic agents continue monitor BMP HTN - continue metoprolol and amlodipine - BP stable HX CVA - Plavix continued by ortho HYPOTHYROIDISM - continue levothyroxine COPD - continue home inhalers - Stable DVT PROPHYLAXIS - on heparin subq DISPOSITION Waiting for rehab placement Current Inpatient Medications: Current Inpatient Medications Medications (Trade) Dose Ordered Sig/Keisha Route Start Time Stop Time Status Last Admin Dose Admin Amlodipine Besylate (Norvasc Tab) 5 mg QAM PO 10/17/16 09:00 11/16/16 08:59 10/18/16 07:25 5 MG Clopidogrel Bisulfate (plAVix TAB) 75 mg DAILY PO 10/17/16 09:00 11/16/16 08:59 10/18/16 07:25 75 MG Estrogens Conjugated (Premarin Tab) 0.9 mg QAM PO 10/17/16 09:00 11/16/16 08:59 10/18/16 07:25 0.9 MG Salmeterol Xinafoate/ Fluticasone (Advair Diskus 250/50 Inh) 1 puff BID INH 10/16/16 21:00 11/15/16 20:59 10/18/16 07:24 1 PUFF Albuterol/ Ipratropium (Combivent Respimat Inh) 1 puffs QID INH 10/16/16 17:00 11/15/16 16:59 10/18/16 17:17 1 PUFFS Levothyroxine Sodium (Synthroid Tab) 75 mcg DAILYBB PO 10/17/16 06:00 11/16/16 05:59 10/18/16 05:31 75 MCG Metoprolol Tartrate (Lopressor Tab) 50 mg BID PO 10/16/16 21:00 11/15/16 20:59 10/18/16 07:26 50 MG Pantoprazole Sodium (Protonix Tab) 40 mg QAM PO 10/17/16 09:00 11/16/16 08:59 10/18/16 07:25 40 MG Oxycodone HCl (Roxicodone Immediate Rel Tab) 1-2 TABS FOR PAIN 1 TABLET ... Q4H PRN PO 10/16/16 16:00 10/30/16 15:59 10/18/16 16:18 10 MG Acetaminophen (Tylenol Tab) 650 mg Q6H PRN PO 10/16/16 16:00 11/15/16 15:59 10/17/16 16:56 650 MG Magnesium Hydroxide (Milk Of Magnesia Susp) 30 ml Q6H PRN PO 10/16/16 16:00 11/15/16 15:59 Docusate Sodium (coLACE CAP) 100 mg BID PO 10/16/16 21:00 11/15/16 20:59 10/18/16 07:26 100 MG Multivitamins (Multivitamin Tab) 1 tab QAM PO 10/17/16 09:00 11/16/16 08:59 10/18/16 07:25 1 TAB Ondansetron HCl (Zofran Inj) 4 mg Q6H PRN IV 10/16/16 16:00 11/15/16 15:59 Heparin Sodium (Porcine) (Heparin Sq 5000 Unit/0.5ml) 5,000 unit Q12 SQ 10/16/16 21:00 11/15/16 20:59 10/17/16 09:28 5,000 UNIT Morphine Sulfate (MoRPHine SULFATE INJ) 2 mg Q2H PRN IV 10/17/16 08:00 10/31/16 07:59 10/17/16 23:16 2 MG Enteral Nutritional Formula (Boost) 1 can BID17 PO 10/18/16 09:00 11/17/16 08:59 10/18/16 10:34 1 CAN
[2016-10-19] VITALS (9 sets, daily range): BP systolic 133–163; BP diastolic 67–75; PULSE 73–81; TEMP 37–38.1; O2SAT 91–95
[2016-10-19] MEDS: LEVOTHYROXINE 75 MCG TAB PO SCH (05:50)
[2016-10-19] MEDS: OXYCODONE HCL IR 5 MG TAB (IMMEDIATE RELEASE) PO PRN ×3 (05:51→23:56)
[2016-10-19 05:55] LABS: HEMATOCRIT 26.9 % (37-47); MEAN CELL VOLUME 88.5 fL (80-100); MEAN CORPUSCULAR HEMOGLOBIN 27.6 pg (25-34); MEAN CORPUSCULAR HGB CONC 31.2 g/dl (32-36); MEAN PLATELET VOLUME 10.8 fL (7.4-10.4); PLATELET COUNT 248 K/uL (130-400); RED BLOOD COUNT 3.04 M/uL (4.2-5.4); WHITE BLOOD COUNT 14.38 K/uL (4.8-10.8)
--- NOTE | 2016-10-19 07:38 | Orthopedic Progress Note ---
Orthopedic Progress Note Date of Service Oct 19, 2016. Subjective Post OP Day: 3 Reports: feeling well, pain controlled w PO medications, Denies: complaints Additional Notes: Having some right knee pain but no injury to the knee. Feels the knee is doing a lot of work to keep her NWB on the LLE. Objective N/V intact, splint C/D/I, capillary refill less than 2 sec., dressing C/D/I, A& O x3, toes mobile Date Time Temp Pulse Resp B/P Pulse Ox O2 Delivery O2 Flow Rate FiO2 10/19/16 06:23 37.4 81 16 163/69 91 Room Air 10/19/16 01:58 37.0 10/19/16 00:00 37.6 10/18/16 23:13 Room Air 10/18/16 23:07 38.0 78 16 157/61 92 Room Air 10/18/16 21:37 76 147/70 10/18/16 15:24 37.3 76 16 114/64 93 Room Air 10/18/16 15:20 Room Air 10/18/16 12:07 37.2 80 18 153/74 94 Room Air 10/18/16 08:53 80 90 10/18/16 08:28 Room Air Laboratory Results 24 Hours: Test 10/19/16 05:25 Hematocrit 26.9 % Hemoglobin 8.4 g/dL Assessment & Plan Assessment: 71 yo female stable POD #3 s/p revision ORIF left ankle, acute blood loss anemia , asymptomatic, may in part be dilutional Plan: 1. Med management 2. DVT prophylaxis- Plavix, TEDs, SCDs 3. PT/OT 4. D/C planning- pt likely to need rehab vs SNF Inhouse Planning Pain Management: PO Tylenol, Oxy IR DVT Prophylaxis: TEDs, Heparin Drip (Patient has refused the last dose.), other (Plavix) Discharge Planning Discharge Planning: assisted facility (When insurance approves and accepted to the facility.) Pain Management: Percocet
[2016-10-19] MEDS ORDERED: OXYC-57 PO (07:41)
[2016-10-19] MEDS ORDERED: ONDA8TAB6 PO (07:41)
--- NOTE | 2016-10-19 07:43 | Discharge Instructions ---
Discharge Instructions Admission Reason for Admission: Left Ankle Closed Fracture Of Tibia Shaft Discharge Discharge Diagnosis / Problem: Left posterior malleolus ankle fracture Discharge Goals Goal(s): Decrease discomfort, Improve function Activity Recommendations Activity Level: OOB In Chair Therapies: Physical Therapy, Weight Bearing Status (Nonweightbearing left lower extremity at all times), Occupational Therapy Weightbearing Status: Left non-weightbearing Lifting Limitations: until after follow-up appointment Exercise/Sports Limitations: until after follow-up appointment Shower/Bathe: keep incision dry (Keep splint on at all times.) . Additional Information Patient informed of condition: Yes Advance Directives: Yes DNR: No Level of Care: Acute Rehab Communicable Disease: No Prognosis: Stable Instructions / Follow-Up Instructions / Follow-Up ACTIVITY RECOMMENDATIONS: Limitations: No weight bearing to affected limb at all times. SPECIAL CARE INSTRUCTIONS: * Some drainage onto the dressing is normal and is no cause for alarm. * Some swelling is natural especially after walking. * When resting, keep your foot elevated above the level of your heart. * Call [facility] if you notice: -Increased drainage -Fever over 101 degrees F -Severe constant pain BANDAGE: * Leave bandage/cast in place unless otherwise directed. * Keep bandage/cast dry at all times. FOLLOW UP VISIT WITH DR. POLLARD If appointment is not already scheduled: Please call [facility] after you get home today to schedule a follow-up appointment for [address] Pollard at . Current Hospital Diet Patient's current hospital diet: Regular Diet Discharge Diet Recommended Diet: Regular Diet Procedures Procedures Performed: Left Ankle Open Reduction Internal Fixation Distal Tibial Fracture; Open Reduction Talus Dislocation; Removal Hardware Tibia; Removal Hardware Fibula Pending Studies Studies pending at discharge: no Medical Emergencies . Who to Call and When: Medical Emergencies: If at any time you feel your situation is an emergency, please call 171 immediately. . Non-Emergent Contact Non-Emergency issues call your: Surgeon Call Non-Emergent contact if: temperature is above 101, your pain is not controlled, your pain is worsening, wound has increased pain . . "Provider Documentation" section prepared by Eugenio Ramírez. Core Measure Problem Core Measures: None
[2016-10-19 08:23] LABS: BUN/CREATININE RATIO 8.1 (10-20); CALCIUM 8.3 mg/dl (8.5-10.1); CREATININE 1.5 mg/dl (0.60-1.20); POTASSIUM 4.1 mmol/L (3.5-5.1)
--- NOTE | 2016-10-19 08:41 | Anesthesiology Progress Note ---
Anesthesia Post Op Note Date & Time Oct 19, 2016 at 08:40 Vital Signs Vital Signs Past 12 Hours Date Time Temp Pulse Resp B/P Pulse Ox O2 Delivery O2 Flow Rate FiO2 10/19/16 07:42 37.0 73 18 159/74 93 Room Air 10/19/16 06:23 37.4 81 16 163/69 91 Room Air 10/19/16 01:58 37.0 10/19/16 00:00 37.6 10/18/16 23:13 Room Air 10/18/16 23:07 38.0 78 16 157/61 92 Room Air 10/18/16 21:37 76 147/70 Notes Mental Status: alert / awake / arousable, participated in evaluation Pt Amnestic to Procedure: Yes Nausea / Vomiting: adequately controlled Pain: adequately controlled Airway Patency, RR, SpO2: stable & adequate BP & HR: stable & adequate Hydration State: stable & adequate Neuraxial Anesthesia: sensory block resolved Anesthetic Complications: no major complications apparent Pt states she had pain in her right knee when she bears weight. Evaluated leg. Normal color sensation movement and temp. No s/s of swelling or redness. Instructed pt to follow up with Dr. Mahoney.
[2016-10-19] MEDS: IPRATROPIUM BROMIDE/ALBUTEROL respimat INH INH SCH ×4 (08:44→20:29)
[2016-10-19] MEDS: DOCUSATE SODIUM 100 MG CAP PO SCH ×2 (08:44→20:30)
[2016-10-19] MEDS: FLUTICASONE/SALMETEROL 250/50 (ADVAIR) 14 PUFF/1 INHALER INH SCH ×2 (08:44→20:29)
[2016-10-19] MEDS: METOPROLOL TARTRATE 50 MG TAB PO SCH ×2 (08:45→20:30)
[2016-10-19] MEDS: CLOPIDOGREL BISULFATE 75 MG TAB PO SCH (08:45)
[2016-10-19] MEDS: ESTROGENS, CONJUGATED 0.3 MG TAB PO SCH (08:45)
[2016-10-19] MEDS: MULTIVITAMIN TAB PO SCH (08:45)
[2016-10-19] MEDS: PANTOprazole SOD 40 MG TAB PO SCH (08:45)
[2016-10-19] MEDS: AMLODIPINE BESYLATE 5 MG TAB PO SCH (08:45)
[2016-10-19] MEDS: HEPARIN SOD 5000 UNIT/0.5 ML CARP SQ SCH ×2 (08:46→20:30)
[2016-10-19] MEDS: BOOST VANILLA PO SCH ×4 (08:51→17:20)
--- NOTE | 2016-10-19 12:00 | DIAGNOSTIC IMAGING REPORT ---
RIGHT KNEE 1 OR 2 VIEWS ROUTINE CLINICAL HISTORY: Right knee pain COMPARISON: None. DISCUSSION: The bones are osteopenic. 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 There are mild osteoarthritic changes most pronounced the patellofemoral joint. There are no acute fractures. IMPRESSION: 1. No acute fractures 2. Osteopenia 3. Mild osteoarthritic changes 4. Patella jono Electronically signed by: Nolan Gee M.D. 10/19/2016 11:59 AM Dictated Date/Time: 10/19/2016 11:58 AM
--- NOTE | 2016-10-19 19:48 | Progress Note ---
Medicine Progress Note Date & Time of Visit: Oct 19, 2016 at 19:38. Subjective Pt was seen and examined Sitting in bed with no distress pt said that her right knee hurts alot she said that she developed pain in the right knee last night She said that this morning pain got worst Pt said that she cannot stand on the right leg because of the knee pain she did not participate today in physical therapy due to the pain denies any chest pain, palpitation, dizziness and sob Objective Last 8 Hrs Date Time Temp Pulse Resp B/P Pulse Ox O2 Delivery O2 Flow Rate FiO2 10/19/16 18:21 37.3 10/19/16 15:50 Room Air 10/19/16 15:30 38.1 78 16 133/69 93 Room Air Physical Exam: General- sitting comfortable, no distress Head- atraumatic Eyes- PERRL, EOMI ENT- oropharynx clear Neck- supple, no JVD Lungs- clear to auscultation and percussion Heart- regular rhythm; no murmur Abdomen- normal bowel sounds, soft Extremities- no calf tenderness, left ankle tenderness, right knee pain with decrease ROM Neuro- alert, oriented x 3; PERRL, EOMI Skin- warm & dry Laboratory Results: Last 24 Hours Test 10/19/16 05:25 White Blood Count 14.38 K/uL Red Blood Count 3.04 M/uL Hemoglobin 8.4 g/dL Hematocrit 26.9 % Mean Corpuscular Volume 88.5 fL Mean Corpuscular Hemoglobin 27.6 pg Mean Corpuscular Hemoglobin Concent 31.2 g/dl RDW Standard Deviation 46.3 fL RDW Coefficient of Variation 14.1 % Platelet Count 248 K/uL Mean Platelet Volume 10.8 fL Sodium Level 138 mmol/L Potassium Level 4.1 mmol/L Chloride Level 105 mmol/L Carbon Dioxide Level 20 mmol/L Anion Gap 13.0 mmol/L Blood Urea Nitrogen 12 mg/dl Creatinine 1.50 mg/dl Est Creatinine Clear Calc Drug Dose 25.5 ml/min Estimated GFR () 40.2 Estimated GFR (Non- 34.7 BUN/Creatinine Ratio 8.1 Random Glucose 93 mg/dl Calcium Level 8.3 mg/dl 25-Hydroxy Vitamin D Total 23.1 ng/ml Assessment & Plan S/P LEFT ANKLE ORIF - POD#2 s/p revision ORIF left ankle - Continue pain management -Hgb 8.4 today - PT/OT -Continue monitor h/h - If hgb drops below 8, will transfuse - Plan to go to rehab ELEVATED CREATINE Creatine 1.6 on admission Don't know her baseline creatine Creatine today 1.5 Will avoid nephrotoxic agents continue monitor BMP RIGHT KNEE PAIN xray of the knee done showed no acute fractures. Mild osteoarthritic changes HTN - continue metoprolol and amlodipine - BP stable HX CVA - Plavix continued by ortho HYPOTHYROIDISM - continue levothyroxine COPD - continue home inhalers - Stable DVT PROPHYLAXIS - on heparin subq DISPOSITION Waiting for rehab placement Current Inpatient Medications: Current Inpatient Medications Medications (Trade) Dose Ordered Sig/Keisha Route Start Time Stop Time Status Last Admin Dose Admin Amlodipine Besylate (Norvasc Tab) 5 mg QAM PO 10/17/16 09:00 11/16/16 08:59 10/19/16 08:45 5 MG Clopidogrel Bisulfate (plAVix TAB) 75 mg DAILY PO 10/17/16 09:00 11/16/16 08:59 10/19/16 08:45 75 MG Estrogens Conjugated (Premarin Tab) 0.9 mg QAM PO 10/17/16 09:00 11/16/16 08:59 10/19/16 08:45 0.9 MG Salmeterol Xinafoate/ Fluticasone (Advair Diskus 250/50 Inh) 1 puff BID INH 10/16/16 21:00 11/15/16 20:59 10/19/16 08:44 1 PUFF Albuterol/ Ipratropium (Combivent Respimat Inh) 1 puffs QID INH 10/16/16 17:00 11/15/16 16:59 10/19/16 17:20 1 PUFFS Levothyroxine Sodium (Synthroid Tab) 75 mcg DAILYBB PO 10/17/16 06:00 11/16/16 05:59 10/19/16 05:50 75 MCG Metoprolol Tartrate (Lopressor Tab) 50 mg BID PO 10/16/16 21:00 11/15/16 20:59 10/19/16 08:45 50 MG Pantoprazole Sodium (Protonix Tab) 40 mg QAM PO 10/17/16 09:00 11/16/16 08:59 10/19/16 08:45 40 MG Oxycodone HCl (Roxicodone Immediate Rel Tab) 1-2 TABS FOR PAIN 1 TABLET ... Q4H PRN PO 10/16/16 16:00 10/30/16 15:59 10/19/16 05:51 10 MG Acetaminophen (Tylenol Tab) 650 mg Q6H PRN PO 10/16/16 16:00 11/15/16 15:59 10/17/16 16:56 650 MG Magnesium Hydroxide (Milk Of Magnesia Susp) 30 ml Q6H PRN PO 10/16/16 16:00 11/15/16 15:59 Docusate Sodium (coLACE CAP) 100 mg BID PO 10/16/16 21:00 11/15/16 20:59 10/19/16 08:44 100 MG Multivitamins (Multivitamin Tab) 1 tab QAM PO 10/17/16 09:00 11/16/16 08:59 10/19/16 08:45 1 TAB Ondansetron HCl (Zofran Inj) 4 mg Q6H PRN IV 10/16/16 16:00 11/15/16 15:59 Heparin Sodium (Porcine) (Heparin Sq 5000 Unit/0.5ml) 5,000 unit Q12 SQ 10/16/16 21:00 11/15/16 20:59 10/17/16 09:28 5,000 UNIT Morphine Sulfate (MoRPHine SULFATE INJ) 2 mg Q2H PRN IV 10/17/16 08:00 10/31/16 07:59 10/17/16 23:16 2 MG Enteral Nutritional Formula (Boost) 1 can BID17 PO 10/18/16 09:00 11/17/16 08:59 10/19/16 17:20 1 CAN
[2016-10-20] MEDS: LEVOTHYROXINE 75 MCG TAB PO SCH (06:32)
[2016-10-20 06:56] VITALS: BP 156/65; PULSE 78; O2SAT 93
[2016-10-20 07:31] LABS: MEAN CELL VOLUME 89.1 fL (80-100); MEAN CORPUSCULAR HEMOGLOBIN 28.1 pg (25-34); MEAN CORPUSCULAR HGB CONC 31.5 g/dl (32-36); MEAN PLATELET VOLUME 10.4 fL (7.4-10.4); PLATELET COUNT 295 K/uL (130-400); RED BLOOD COUNT 3.03 M/uL (4.2-5.4); WHITE BLOOD COUNT 9.68 K/uL (4.8-10.8)
[2016-10-20 08:06] LABS: BUN/CREATININE RATIO 8.5 (10-20); CALCIUM 8.4 mg/dl (8.5-10.1); CREATININE 1.4 mg/dl (0.60-1.20); POTASSIUM 3.9 mmol/L (3.5-5.1)
[2016-10-20] MEDS: FLUTICASONE/SALMETEROL 250/50 (ADVAIR) 14 PUFF/1 INHALER INH SCH (08:57)
[2016-10-20] MEDS: IPRATROPIUM BROMIDE/ALBUTEROL respimat INH INH SCH ×2 (08:58→13:26)
[2016-10-20] MEDS: PANTOprazole SOD 40 MG TAB PO SCH (08:58)
[2016-10-20] MEDS: BOOST VANILLA PO SCH ×2 (08:58)
[2016-10-20] MEDS: METOPROLOL TARTRATE 50 MG TAB PO SCH (08:59)
[2016-10-20] MEDS: ESTROGENS, CONJUGATED 0.3 MG TAB PO SCH (09:00)
[2016-10-20] MEDS: HEPARIN SOD 5000 UNIT/0.5 ML CARP SQ SCH (09:00)
[2016-10-20] MEDS: DOCUSATE SODIUM 100 MG CAP PO SCH (09:00)
[2016-10-20] MEDS: CLOPIDOGREL BISULFATE 75 MG TAB PO SCH (09:00)
[2016-10-20] MEDS: AMLODIPINE BESYLATE 5 MG TAB PO SCH (09:01)
[2016-10-20] MEDS: MULTIVITAMIN TAB PO SCH (09:01)
[2016-10-20] MEDS: OXYCODONE HCL IR 5 MG TAB (IMMEDIATE RELEASE) PO PRN ×2 (09:23→13:46)
[2016-10-20 11:54] VITALS: BP 123/68; PULSE 77; TEMP 37; O2SAT 95
[2016-10-20 12:20] VITALS: BP 123/68; PULSE 77; TEMP 37; O2SAT 95
--- NOTE | 2016-10-20 12:52 | Progress Note ---
Medicine Progress Note Date & Time of Visit: Oct 20, 2016 at 12:46. Subjective Pt was seen and examined Lying in bed with no distress Pt said that she is still having right knee pain she had an xray right knee done yesterday that was negative for fracture Explained to pt the pain might be due to because she is favored the right leg now because of the surgery in the left lower extremity denies any chest pain, palpitation, dizziness and sob Objective Last 8 Hrs Date Time Temp Pulse Resp B/P Pulse Ox O2 Delivery O2 Flow Rate FiO2 10/20/16 12:20 37.0 77 16 95 Room Air 10/20/16 11:54 37.0 77 16 123/68 95 Room Air 10/20/16 09:53 Room Air 10/20/16 07:30 Room Air 10/20/16 06:56 78 16 156/65 93 Room Air Physical Exam: General- sitting comfortable, no distress Head- atraumatic Eyes- PERRL, EOMI ENT- oropharynx clear Neck- supple, no JVD Lungs- clear to auscultation and percussion Heart- regular rhythm; no murmur Abdomen- normal bowel sounds, soft Extremities- no calf tenderness, left ankle tenderness, right knee pain with decrease ROM Neuro- alert, oriented x 3; PERRL, EOMI Skin- warm & dry Laboratory Results: Last 24 Hours Test 10/20/16 06:56 White Blood Count 9.68 K/uL Red Blood Count 3.03 M/uL Hemoglobin 8.5 g/dL Hematocrit 27.0 % Mean Corpuscular Volume 89.1 fL Mean Corpuscular Hemoglobin 28.1 pg Mean Corpuscular Hemoglobin Concent 31.5 g/dl RDW Standard Deviation 46.6 fL RDW Coefficient of Variation 14.2 % Platelet Count 295 K/uL Mean Platelet Volume 10.4 fL Sodium Level 140 mmol/L Potassium Level 3.9 mmol/L Chloride Level 106 mmol/L Carbon Dioxide Level 25 mmol/L Anion Gap 9.0 mmol/L Blood Urea Nitrogen 12 mg/dl Creatinine 1.40 mg/dl Est Creatinine Clear Calc Drug Dose 27.3 ml/min Estimated GFR () 43.7 Estimated GFR (Non- 37.7 BUN/Creatinine Ratio 8.5 Random Glucose 97 mg/dl Calcium Level 8.4 mg/dl Assessment & Plan S/P LEFT ANKLE ORIF - POD#3 s/p revision ORIF left ankle - Continue pain management -Hgb 8.5 today - Continue PT/OT -Continue monitor h/h - If hgb drops below 8, will transfuse - Plan to go to rehab ELEVATED CREATINE Creatine 1.6 on admission Don't know her baseline creatine Creatine today 1.4 Will avoid nephrotoxic agents continue monitor BMP stable RIGHT KNEE PAIN xray of the knee done showed no acute fractures. Mild osteoarthritic changes continue PT/OT HTN - continue metoprolol and amlodipine - BP stable HX CVA - Plavix continued by ortho HYPOTHYROIDISM - continue levothyroxine COPD - continue home inhalers - Stable DVT PROPHYLAXIS - on heparin subq DISPOSITION Waiting for rehab placement Medically stable to discharge to rehab Current Inpatient Medications: Current Inpatient Medications Medications (Trade) Dose Ordered Sig/Keisha Route Start Time Stop Time Status Last Admin Dose Admin Amlodipine Besylate (Norvasc Tab) 5 mg QAM PO 10/17/16 09:00 11/16/16 08:59 10/20/16 09:01 5 MG Clopidogrel Bisulfate (plAVix TAB) 75 mg DAILY PO 10/17/16 09:00 11/16/16 08:59 10/20/16 09:00 75 MG Estrogens Conjugated (Premarin Tab) 0.9 mg QAM PO 10/17/16 09:00 11/16/16 08:59 10/20/16 09:00 0.9 MG Salmeterol Xinafoate/ Fluticasone (Advair Diskus 250/50 Inh) 1 puff BID INH 10/16/16 21:00 11/15/16 20:59 10/20/16 08:57 1 PUFF Albuterol/ Ipratropium (Combivent Respimat Inh) 1 puffs QID INH 10/16/16 17:00 11/15/16 16:59 10/20/16 08:58 1 PUFFS Levothyroxine Sodium (Synthroid Tab) 75 mcg DAILYBB PO 10/17/16 06:00 11/16/16 05:59 10/20/16 06:32 75 MCG Metoprolol Tartrate (Lopressor Tab) 50 mg BID PO 10/16/16 21:00 11/15/16 20:59 10/20/16 08:59 50 MG Pantoprazole Sodium (Protonix Tab) 40 mg QAM PO 10/17/16 09:00 11/16/16 08:59 10/20/16 08:58 40 MG Oxycodone HCl (Roxicodone Immediate Rel Tab) 1-2 TABS FOR PAIN 1 TABLET ... Q4H PRN PO 10/16/16 16:00 10/30/16 15:59 10/20/16 09:23 10 MG Acetaminophen (Tylenol Tab) 650 mg Q6H PRN PO 10/16/16 16:00 11/15/16 15:59 10/17/16 16:56 650 MG Magnesium Hydroxide (Milk Of Magnesia Susp) 30 ml Q6H PRN PO 10/16/16 16:00 11/15/16 15:59 Docusate Sodium (coLACE CAP) 100 mg BID PO 10/16/16 21:00 11/15/16 20:59 10/20/16 09:00 100 MG Multivitamins (Multivitamin Tab) 1 tab QAM PO 10/17/16 09:00 11/16/16 08:59 10/20/16 09:01 1 TAB Ondansetron HCl (Zofran Inj) 4 mg Q6H PRN IV 10/16/16 16:00 11/15/16 15:59 Heparin Sodium (Porcine) (Heparin Sq 5000 Unit/0.5ml) 5,000 unit Q12 SQ 10/16/16 21:00 11/15/16 20:59 10/17/16 09:28 5,000 UNIT Morphine Sulfate (MoRPHine SULFATE INJ) 2 mg Q2H PRN IV 10/17/16 08:00 10/31/16 07:59 10/17/16 23:16 2 MG Enteral Nutritional Formula (Boost) 1 can BID17 PO 10/18/16 09:00 11/17/16 08:59 10/20/16 08:58 1 CAN
--- NOTE | 2016-10-20 13:42 | Orthopedic Progress Note ---
Orthopedic Progress Note Date of Service Oct 20, 2016. Subjective Post OP Day: 4 Reports: feeling well Additional Notes: Pain controlled with her operative ankle. Having right knee pain with ambulation. Xrays negative for fx but looks like she has Patellofemoral Djd with spurring noted on the Patella. Patella [employer] noted. No real pain at rest. Only with ambulation. Objective calves soft nontender, N/V intact, splint C/D/I, A&O x3, toes mobile Right knee without swelling, erythema. Flexing the knee without much difficulty. Mild crepitus. Mildly tender over the Patella on palpation and somewhat along the joint line. +SLR. Patellar tendon feels intact and NT. Date Time Temp Pulse Resp B/P Pulse Ox O2 Delivery O2 Flow Rate FiO2 10/20/16 12:20 37.0 77 16 95 Room Air 10/20/16 11:54 37.0 77 16 123/68 95 Room Air 10/20/16 09:53 Room Air 10/20/16 07:30 Room Air 10/20/16 06:56 78 16 156/65 93 Room Air 10/20/16 00:00 Room Air 10/19/16 23:14 37.5 78 16 141/67 95 Room Air 10/19/16 20:35 37.2 10/19/16 18:21 37.3 10/19/16 15:50 Room Air 10/19/16 15:30 38.1 78 16 133/69 93 Room Air Laboratory Results 24 Hours: Test 10/20/16 06:56 Hematocrit 27.0 % Hemoglobin 8.5 g/dL Assessment & Plan Assessment: 71 yo female stable POD #4 s/p revision ORIF left ankle, acute blood loss anemia , asymptomatic Plan: 1. Med management 2. DVT prophylaxis- Plavix, TEDs, SCDs 3. PT/OT 4. D/C planning- To SNF today. Follow up as per DC instructions. Inhouse Planning Pain Management: Morphine, PO Tylenol, Oxy IR DVT Prophylaxis: TEDs, Heparin Drip (Patient has refused the last dose.), other (Plavix) Discharge Planning Discharge Planning: [facility]ci facility ([facility]) Pain Management: Percocet DVT Prophylaxis: other (Plavix) Therapy: Physical Therapy
[2016-10-20 15:31] VITALS: BP 123/57; PULSE 75; TEMP 36.9; O2SAT 97
--- NOTE | 2016-10-27 09:11 | DISCHARGE SUMMARY ---
DISCHARGE DIAGNOSES: 1. Trimalleolar ankle fracture, left. 2. Dislocation, left ankle joint. 3. Retained hardware. CONSULT: JUSTIN Cabrera/Mark Hernandez DO. COMPLICATIONS: None. PROCEDURES: Left ankle open reduction and internal fixation distal tibia fracture, open reduction and talus dislocation, removal of hardware tibia, removal of hardware fibula by Dr. Mahoney on 10/16/2016. BRIEF HISTORY: As dictated in the history and physical. HOSPITAL SUMMARY: The patient was admitted on the above date and had the above-noted surgery performed, which she tolerated well[facility] during the patient's [facility]. The patient continued to remain stable. On her first postoperative day, she was sitting in chair and was comfortable without distress and said that she felt fine. Pain was controlled and had no complaints. Vital signs were stable. She was afebrile. Hemoglobin was 8.7 and she was started on physical therapy protocol and continued on DVT prophylaxis and pain management and [facility] By her second postoperative day, she was having some right knee pain but no injury to the knee. She felt the knee was doing a lot of work to keep her nonweightbearing on the left lower extremity. Neurovascularly intact. Splint was clean, dry and intact. Dressings were intact and toes were mobile. Vital signs were stable. She was afebrile. A left knee x-ray was taken but was negative for fracture or dislocation but did appear that she had some patellofemoral DJD with spurring noted on the patella. Patella jono was also noted, but she was still having some pain in the knee when I saw her that day on the . She was flexing the knee without much difficulty. She had mild crepitus. She is mildly tender over the patella on palpation, but somewhat along the joint line as well. She had a positive SLR and patellar tendon was intact and nontender. Vital signs were stable. She was afebrile. Hemoglobin was remaining stable and it was felt that she would benefit from a rehab stay post discharge which [facility] was chosen. Authorization had been achieved by case management. She was remaining medically stable and it was felt she could be discharged to a [facility] facility on 10/20/2016. For further review, please see chart. LAB AND X-RAY DATA: As per chart. DISCHARGE INSTRUCTIONS: The patient was discharged to [facility] on 10/20/2016. ACTIVITY: Nonweightbearing, left lower extremity. The patient to have PT and OT. Follow instructions as noted and follow up with Dr. Mahoney in 10-14 days. DIET: Regular. DISCHARGE MEDICATIONS: Zofran 8 mg p.o. q. 8 hours p.r.n. nausea, Percocet 5/325 1-2 tablets p.o. q. 4 hours p.r.n., resume taking Norvasc 5 mg p.o. q.a.m., Plavix 1 tab p.o. daily, Premarin 0.9 mg p.o. q.a.m., Advair Diskus 250/50 one puff inhaled b.i.d., Combivent Respimat 1 puff inhaled q.i.d., levothyroxine 75 mcg p.o. q.a.m., metoprolol 50 mg p.o. b.i.d., pantoprazole 40 mg p.o. q.a.m.
--- NOTE | 2016-11-03 13:14 | EDITING REQUIRED CODING QUERY ---
SUPPORTING DIAGNOSIS NEEDED A supporting diagnosis is required for the test/procedure performed on this patient in order for us to be reimbursed by the patient's insurance. Please provide a supporting diagnosis for the following test/procedure listed below next to the test name along with your signature. *If there is no additional diagnosis for this patient that would support the following test/procedure please document that below next to the test/procedure. Test(s)/Procedure(s) that require a supporting diagnosis: * VITAMIN D LEVEL DIAGNOSIS: Osteopenia/Osteoporosis * DOS: 10/19/16 Provider Signature: Naveed Mahoney DO Date: 11/11/2016 Thank you Kaelyn Tapia [employer] Information Management For questions please call [phone]
== END 2016-10-20 16:25 | DRG 493 ==
LOC: ENRESERVDT → ENRESERVTM → C.ACU 09:34 → C.MSW 16:01
PROVIDERS: ADMIT Orthopaedic Surgery Sports Medicine; ATTEND Orthopaedic Surgery Sports Medicine
PROC: 0SSJ0ZZ Reposition Left Tarsal Joint, Open Approach (ICD-10-PCS; principal; 2016-10-16 11:00)
PROC: 0QPH04Z Removal of Internal Fixation Device from Left Tibia, Open Approach (ICD-10-PCS; principal; 2016-10-16 11:00)
PROC: 0QPK04Z Removal of Internal Fixation Device from Left Fibula, Open Approach (ICD-10-PCS; principal; 2016-10-16 11:00)
PROC: 0QSH04Z Reposition Left Tibia with Internal Fixation Device, Open Approach (ICD-10-PCS; principal; 2016-10-16 11:00)
DX: T84.117A Breakdown (mechanical) of internal fixation device of bone of left lower leg, initial encounter (principal); S82.302A Unspecified fracture of lower end of left tibia, initial encounter for closed fracture; D62 Acute posthemorrhagic anemia; M81.0 Age-related osteoporosis without current pathological fracture; S93.05XA Dislocation of left ankle joint, initial encounter; M17.12 Unilateral primary osteoarthritis, left knee; I10 Essential (primary) hypertension; J44.9 Chronic obstructive pulmonary disease, unspecified; K21.9 Gastro-esophageal reflux disease without esophagitis; Z86.73 Personal history of transient ischemic attack (TIA), and cerebral infarction without residual deficits; E03.9 Hypothyroidism, unspecified; W19.XXXD Unspecified fall, subsequent encounter; Y79.2 Prosthetic and other implants, materials and accessory orthopedic devices associated with adverse incidents; Y92.009 Unspecified place in unspecified non-institutional (private) residence as the place of occurrence of the external cause

== ENCOUNTER 2016-12-11 05:44 | Day surgery (SDC) | payer OTHER ==
--- NOTE | 2016-12-10 21:20 | HISTORY & PHYSICAL EXAMINATION ---
DATE OF ADMISSION: 12/11/2016 SUBJECTIVE CHIEF COMPLAINT: Left ankle nonhealing wound. HISTORY OF PRESENT ILLNESS: This is a patient who had undergone an ORIF of the left ankle fracture originally in [place] and in subsequent followup, she was noted to have a displaced intraarticular distal tibia fracture. She was then seen by Dr. Mahoney who performed an ORIF of the distal tibia fracture with a posterior approach as well as removal of the hardware that was causing skin breakdown from her original surgery. More recently during her follow up, she noted there was an odor that came from the left ankle. She was seen recently in our [facility] office and noted to have wound dehiscence as well as infection started within the lateral aspect of the ankle. The patient is now being set up for surgical treatment. PAST MEDICAL HISTORY: Hypertension, COPD, hypothyroidism and acid reflux. SOCIAL HISTORY: The patient denies alcohol and tobacco use. PAST SURGICAL HISTORY: Cholecystectomy and an arterial stent in August of 2013 as well as left ankle surgery x2. ALLERGIES: No known drug allergies. CURRENT MEDICATIONS: Synthroid 75 mcg 1 p.o. daily, Protonix 40 mg 1 p.o. daily, Norvasc 5 mg 1 p.o. daily, metoprolol 50 mg 1 p.o. b.i.d., aspirin 81 mg p.o. daily, Advair Diskus 250 mcg 2 puffs q. 12 hours, Premarin 0.3 mg 1 p.o. daily for 21 days and then 7 days off. FAMILY HISTORY: Noncontributory. OBJECTIVE PHYSICAL EXAMINATION: GENERAL: The patient is alert and oriented x3. She is in no acute distress. She is a well-dressed, well-nourished 71-year-old female and her affect is appropriate. CARDIOVASCULAR: Heart has a regular rhythm and rate without murmurs. LUNGS: Clear to auscultation bilateral. LYMPHATICS: No evidence of any swollen lymph nodes. MUSCULOSKELETAL: The patient is nonweightbearing on the left lower extremity. On inspection of left lower extremity, there is a nonhealing wound dehiscence at the posterolateral aspect of the left ankle with erythema and sloughing of skin noted, the area is malodorous. No range of motion or strength testing was performed. NEUROLOGIC: Sensation normal and intact distally. ASSESSMENT AND DIAGNOSIS: 1. Left ankle nonhealing surgical wound. PLAN: Above assessment was discussed with the patient. At this time, it was recommended the patient undergo an I\T\D of the left ankle wound dehiscence as well as application of platelet rich plasma. All potential risks, benefits, complications, alternatives and rehab have been discussed with the patient. At this time, she wishes to proceed with the surgery as indicated. She will be scheduled for the surgery on 12/11/2016. FRANSICO
[~2016-12-11] VITALS: Ht 157.5 cm; Wt 44.0 kg
[~2016-12-11 05:44] MED LIST changes: -BUPIVACAINE 0.5 % 5 MG/1 ML PF 10ML VIAL ONE; -CEFAZOLIN 1000MG/55 ML D5W IV SCH; -FENTANYL CITRATE INJ 50 MCG/1 ML 2 ML VIAL ONE; -LACTATED RINGER'S 1000ML 1,000 ML IV SCH; -MIDAZOLAM HCL 1 MG/ML 2ML VIAL ONE; +ONDA8TAB6 PO; +OXYC-57 PO
[2016-12-11] MEDS ORDERED: LACTATED RINGER'S 1000ML 1,000 ML IV SCH (06:00)
[2016-12-11 07:34] VITALS: BP 146/57; PULSE 64; TEMP 36.5; O2SAT 99; Ht 157.5 cm; Wt 44.0 kg
[2016-12-11] MEDS ORDERED: BUPIVACAINE 0.5 % 5 MG/1 ML MPF 30ML VIAL ONE (07:36)
[2016-12-11] MEDS ORDERED: CEFAZOLIN SOD 1000MG/55 ML D5W IV ONE (08:00)
[2016-12-11] MEDS ORDERED: ONDANSETRON INJ 2 MG/ML 2 ML VIAL IV PRN (08:30)
[2016-12-11] MEDS ORDERED: EpHEDrine SULFATE INJ 50 MG/ML AMP IV PRN (08:30)
[2016-12-11] MEDS ORDERED: FENTANYL CITRATE INJ 50 MCG/1 ML 2 ML VIAL IV PRN (08:30)
[2016-12-11] MEDS ORDERED: ATROPINE SULFATE 0.1 MG/ML 5ML SYR IV PRN (08:30)
[2016-12-11] MEDS ORDERED: CALCIUM CHLORIDE 10% 10 ML SYR ONE ×2 (08:33→08:34)
[2016-12-11] MEDS ORDERED: THROMBIN 5000 UNITS KIT ONE (08:33)
[2016-12-11] MEDS ORDERED: PROPOFOL IV EMULSION 10 MG/ML 20 ML VIAL IV ONE (08:41)
[2016-12-11] MEDS ORDERED: MIDAZOLAM HCL 1 MG/ML 2ML VIAL ONE (08:41)
[2016-12-11] MEDS ORDERED: EpHEDrine SULFATE 50MG/5ML SYR ONE (08:41)
[2016-12-11] MEDS ORDERED: FENTANYL CITRATE INJ 50 MCG/1 ML 2 ML VIAL ONE (08:41)
[2016-12-11] MEDS ORDERED: LIDOCAINE HCL 2% 2 ML VIAL (20MG/ML) ONE (08:41)
[2016-12-11] MEDS ORDERED: HYDR-5688 PO (09:07)
[2016-12-11] MEDS ORDERED: SULF800T23 PO (09:10)
[2016-12-11] MEDS ORDERED: CEPH500C2 PO (09:10)
[2016-12-11] MEDS ORDERED: PROB1CAP6 PEG (09:10)
--- NOTE | 2016-12-11 09:41 | [facility] Post Operative Brief Note ---
Immediate Operative Summary Operative Date Dec 11, 2016. Pre-Operative Diagnosis Left ankle non-healing surgical wound Post-Operative Diagnosis Left ankle non-healing surgical wound Procedure(s) Performed Left Ankle Irrigation and Debridement skin, fat and fascia,; Application of Platelet Rich Plasma Surgeon Dr. Naveed Mahoney It Support Manager Surgeon(s) Eugenio Ramírez PA-C Estimated Blood Loss 2cc Findings See Dict Specimens Specimen #1Microbiology Left Ankle Wound Culture, Gram Stain/Anerobic/aerobic/Culture and Sensitivity out at 0845 Drains Loose closure Anesthesia GLMA w/ local Complication(s) None Disposition Recovery Room / PACU
--- NOTE | 2016-12-11 09:41 | Discharge Instructions ---
Discharge Instructions Date of Service Dec 11, 2016. Admission Reason for Admission: Left Ankle Nonhealing Surgical Wound Discharge Discharge Diagnosis / Problem: left ankle nonhealing wound Discharge Goals Goal(s): Decrease discomfort, Improve disease control Activity Recommendations Activity Limitations: per Instructions/Follow-up section Shower/Bathe: keep incision dry (Keep dressing in place until follow up) Weightbearing Status: Left non-weightbearing . Instructions / Follow-Up Instructions / Follow-Up ACTIVITY RECOMMENDATIONS: Limitations: No weight bearing to affected limb at all times. SPECIAL CARE INSTRUCTIONS: * Some drainage onto the dressing is normal and is no cause for alarm. * Some swelling is natural especially after walking. * When resting, keep your foot elevated above the level of your heart. * Call [facility] if you notice: -Increased drainage -Fever over 101 degrees F -Severe constant pain BANDAGE: * Leave bandage/cast in place unless otherwise directed. * Keep bandage/cast dry at all times. FOLLOW UP VISIT WITH DR. POLLARD If appointment is not already scheduled: Please call [facility] after you get home today to schedule a follow-up appointment for [address] Pollard at . Current Hospital Diet Patient's current hospital diet: Discharge Diet Recommended Diet: Regular Diet Procedures Procedures Performed: Left Ankle Incision and Drainage; Application of Platelet Rich Plasma Pending Studies Studies pending at discharge: no Medical Emergencies . Who to Call and When: Medical Emergencies: If at any time you feel your situation is an emergency, please call 911 immediately. . Non-Emergent Contact Non-Emergency issues call your: Surgeon Call Non-Emergent contact if: temperature is above 101, your pain is not controlled, your pain is worsening, wound has increased drainage . "Provider Documentation" section prepared by Eugenio Ramírez. VTE Core Measure Inpt VTE Proph given/why not?: Other Anticoagulation (Plavix and Aspirin)
[2016-12-11] MEDS ORDERED: BACITRACIN 50000 UNIT VIAL ONE (09:45)
[2016-12-11 09:55] VITALS: BP 139/47; PULSE 72; TEMP 36.3; O2SAT 98
--- NOTE | 2016-12-11 09:58 | OPERATIVE REPORT ---
DATE OF OPERATION: 12/11/2016 PREOPERATIVE DIAGNOSIS: Left posterior ankle wound dehiscence. POSTOPERATIVE DIAGNOSIS: Same. PROCEDURE: 1. Left ankle irrigation and debridement including skin, subcutaneous fat and fascia, wound dehiscence. 2. Application platelet rich plasma concentrate. SURGEON: Dr. Mahoney. STREET ROLLER ENGINEER: Eugenio Ramírez PA-C, who was present for patient positioning, sterile prep and drape, management of retractors and instruments. He was present through the critical portions of the case including wound closure, application of sterile dressing and transport of the patient to recovery. ANESTHESIA: General LMA with local. SPECIMENS: Aerobic, anaerobic, Gram stain. DRAINS: Open loose closure. COMPLICATIONS: None. BLOOD LOSS: 2 mL PERTINENT HISTORY: This is a 71-year-old female who had sustained a fracture of her ankle. She had an ORIF by another provider at [facility] She was then referred to md and she had removal of her hardware and then revision ORIF of her ankle fracture. She was doing well for approximately the first 2 weeks and then started having difficulty with the posterolateral ankle incision. Attempted conservative management failed, they said the patient had a wound dehiscence and was then scheduled for surgery as indicated. All potential risks, benefits, complications, alternatives, rehab, potential for incomplete relief of symptoms, need for further surgery, DVT, PE, , persistent pain, swelling, scarring, weakness, neurovascular injury, wound complications, possible need for hardware removal and revision surgery were discussed with the patient. The patient decided to proceed with the procedure as indicated. PROCEDURE IN DETAIL: The patient was taken to the operative suite, placed supine on the operating room table. After review of the consent and identification of proper operative site, the patient was anesthetized, LMA was placed. Tourniquet was placed high on the left thigh over cast padding. Left lower extremity was then sterilely prepped and draped in usual fashion, elevated, and tourniquet inflated to 300 mmHg. There was no exsanguination performed due to the wound dehiscence. Next, the eschar was then sharply excised with a 15 blade scalpel down to the level of the subcutaneous tissue. At this point, there was noted to be some fibrinous exudate. This was debrided with a 15 blade scalpel to bleeding tissue. The edges of the wound were then freshened to the skin and down to the level of the fascia and the subcutaneous fat which appeared overall viable. The areas where it was not viable were then sharply debrided with a 15 blade scalpel. Next, a rongeur was used to remove any other fibrinous tissue and then a pulsatile lavage with bacitracin was used to lavage the incision, followed by harvesting of the patient's venous blood and sitting down for harvest of the platelet rich plasma concentrate which was then injected deep into the wound and also superficially. Of note, when the eschar was removed, specimen for aerobic, anaerobic and Gram stain evaluation was obtained and passed off as specimen. After final irrigation and application of platelet rich plasma concentrate, the wound was then loosely closed with interrupted 3-0 nylon sutures. Next, a sterile compressive dressing of Acticoat, sterile 4 x 4's, Webril and Julián wrap was applied. The tourniquet was released. The patient was awakened and taken to recovery room in stable condition. I attest to the content of the Intraoperative Record and any orders documented therein. Any exceptio ns are noted below.
[2016-12-11] MEDS ORDERED: HYDROCODONE/ACETAMOPHEN 5/325MG TAB PO PRN (10:00)
[2016-12-11 10:25] VITALS: BP_SYST 130; BP_SYST 132; BP_DIAS 44; BP_DIAS 56; PULSE 69; TEMP 36.8; O2SAT 96; O2SAT 99
--- NOTE | 2016-12-11 10:31 | Anesthesiology Progress Note ---
Anesthesia Post Op Note Date & Time Dec 11, 2016 at 10:32 Vital Signs Pain Intensity: 0 Vital Signs Past 12 Hours Date Time Temp Pulse Resp B/P Pulse Ox O2 Delivery O2 Flow Rate FiO2 12/11/16 09:55 36.3 72 18 139/47 98 Room Air 0 12/11/16 09:45 36.6 74 16 159/62 98 Room Air 0 12/11/16 09:35 73 16 162/62 100 Room Air 0 12/11/16 09:25 77 16 170/60 100 Mask 10 12/11/16 09:15 85 16 173/61 100 Mask 10 12/11/16 09:07 36.8 87 16 160/53 100 Mask 10 12/11/16 07:34 36.5 64 16 146/57 99 Room Air Notes Mental Status: alert / awake / arousable, participated in evaluation Pt Amnestic to Procedure: Yes Nausea / Vomiting: adequately controlled Pain: adequately controlled Airway Patency, RR, SpO2: stable & adequate BP & HR: stable & adequate Hydration State: stable & adequate Anesthetic Complications: no major complications apparent
[2016-12-11 10:48] VITALS: BP 130/56; PULSE 76; TEMP 36.8; O2SAT 99
--- NOTE | 2016-12-15 14:12 | EDITING REQUIRED CODING QUERY ---
DEBRIDEMENT DOCUMENTATION To promote full compliance with coding requirements relating to patient care, physician participation is requested in all cases of consumer advocate uncertainty. Please assist us with the question(s) below: Please specify the debridement size in square centimeters below: Size of Debridement in cm2: 12 square centimeters Thank you for your assistance, Cheryl Menjivar - [employer] Specialist
== END 2016-12-11 10:50 | disposition home or self-care (01) ==
LOC: C.ACU 05:44
PROVIDERS: ATTEND Orthopaedic Surgery Sports Medicine
DX: T81.31XA Disruption of external operation (surgical) wound, not elsewhere classified, initial encounter (principal); Y83.1 Surgical operation with implant of artificial internal device as the cause of abnormal reaction of the patient, or of later complication, without mention of misadventure at the time of the procedure; I10 Essential (primary) hypertension; J44.9 Chronic obstructive pulmonary disease, unspecified; E03.9 Hypothyroidism, unspecified; K21.9 Gastro-esophageal reflux disease without esophagitis; Z90.49 Acquired absence of other specified parts of digestive tract; Z79.82 Long term (current) use of aspirin
CPT/HCPCS: 0232T; 11043